=== PATIENT | male | born 1970 | race Two or more races ===

== ENCOUNTER 2017-10-03 17:36 | Inpatient (IN) | payer OTHER ==
[~2017-10-03] VITALS: Ht 182.9 cm; Wt 135.9 kg
[2017-10-03] MEDS ORDERED: SODIUM CHLORIDE 0.9% 1,000ML IVBOLUS ONE ×3 (18:00→23:30)
[2017-10-03] MEDS ORDERED: ACETAMINOPHEN 650 MG SUPP PR ONE (18:00)
[2017-10-03] MEDS ORDERED: ACETAMINOPHEN 650 MG SUPP ONE (18:00)
[2017-10-03] MEDS ORDERED: CEFOTETAN PMX 2GM/50ML 50 ML IV ONE (18:00)
[2017-10-03] MEDS ORDERED: SODIUM CHLORIDE FLUSH 10ML SYR IVF ONE (18:00)
[2017-10-03 18:30] LABS: HEMATOCRIT 49.2 % (39.2-51.8); HEMOGLOBIN 16.5 g/dL (13.7-18.0); WHITE BLOOD COUNT 13.1 x10^3/uL (3.4-10)
[2017-10-03] MEDS ORDERED: ONDANSETRON 2MG/ML, 2ML IVPush PRN ×2 (18:30→20:00)
[2017-10-03] MEDS ORDERED: ACETAMINOPHEN 325 MG TABLET PO PRN (18:30)
[2017-10-03 18:41] LABS: ASPARTATE AMINO TRANSFERASE 9 U/L (15-37); BLOOD UREA NITROGEN 12 mg/dL (7-18)
[2017-10-03] MEDS ORDERED: morphine SULFATE 10 MG/ML, 1ML IVPush PRN (20:00)
[2017-10-03] MEDS ORDERED: BISACODYL 10 MG SUPP PR PRN (20:00)
[2017-10-03] MEDS ORDERED: ACETAMINOPHEN 650 MG SUPP PR PRN (20:00)
[2017-10-03 21:00] VITALS: BP 130/86
[2017-10-03] MEDS: SODIUM CHLORIDE 0.9% 1,000 ML IV SCH (23:12)
[2017-10-04 04:25] VITALS: BP 133/88
[2017-10-04 05:20] LABS: HEMATOCRIT 44.8 % (39.2-51.8); HEMOGLOBIN 15.3 g/dL (13.7-18.0); WHITE BLOOD COUNT 14.4 x10^3/uL (3.4-10)
[2017-10-04 05:37] LABS: ASPARTATE AMINO TRANSFERASE 8 U/L (15-37); BLOOD UREA NITROGEN 8 mg/dL (7-18)
[2017-10-04] MEDS ORDERED: CEFOTETAN PMX 2GM/50ML 50 ML IV SCH (06:00)
[2017-10-04] MEDS ORDERED: FENTANYL PF 100 MCG/2ML ONE ×2 (07:04)
[2017-10-04] MEDS ORDERED: MIDAZOLAM 1 MG/ML, 2ML ONE (07:04)
[2017-10-04] MEDS ORDERED: ROCURONIUM 10 MG/ML,10ML ONE (07:05)
[2017-10-04] MEDS ORDERED: PROPOFOL 10 MG/ML, 20ML ONE (07:05)
[2017-10-04] MEDS ORDERED: SUCCINYLCHOLINE 20 MG/ML, 10ML ONE (07:06)
[2017-10-04] MEDS ORDERED: EPINEPHRINE 1 MG/ML, 1ML ONE (07:09)
[2017-10-04] MEDS ORDERED: BUPIVACAINE/PF 0.5% ONE (07:09)
[2017-10-04] MEDS ORDERED: OXYcodone 5 MG/5 ML ORAL.SOL UDC PO PRN (07:30)
[2017-10-04] MEDS ORDERED: HYDROmorphone 1 MG/ML, 1ML IV PRN (07:30)
[2017-10-04] MEDS ORDERED: ONDANSETRON 2MG/ML, 2ML IVPush PRN (07:30)
[2017-10-04] MEDS ORDERED: PROMETHAZINE 25 MG/ML, 1ML IV PRN (07:30)
[2017-10-04] MEDS ORDERED: FENTANYL PF 100 MCG/2ML IV PRN (07:30)
[2017-10-04] MEDS ORDERED: hydrALAzine 20 MG/ML, 1ML IV PRN (07:30)
[2017-10-04] MEDS ORDERED: LABETALOL 5MG/ML, 20ML IV PRN (07:30)
[2017-10-04] MEDS ORDERED: ACETAMINOPHEN 325 MG TABLET PO PRN (07:30)
[2017-10-04] MEDS ORDERED: MEPERIDINE/PF 25MG/0.5ML IVPush PRN (07:30)
[2017-10-04] MEDS: SODIUM CHLORIDE 0.9% 1,000 ML IV SCH (07:42)
[2017-10-04 07:45] VITALS: BP 123/82
[2017-10-04] MEDS ORDERED: MAGNESIUM SULFATE PMX 2GM/50ML 50 ML IV ONE (09:30)
[2017-10-04] MEDS ORDERED: DILTIAZEM 5 MG/ML, 5ML IVPush ONE (09:30)
[2017-10-04] MEDS ORDERED: [UNRECOGNIZED DRUG - CODE] IV (09:33)
[2017-10-04] MEDS ORDERED: ONDA4VIA4 IVPush (09:41)
[2017-10-04] MEDS ORDERED: HYDR1AMP IV ×2 (09:41→10:03)
[2017-10-04] MEDS ORDERED: MORP10VI10 IVPush (09:41)
[2017-10-04] MEDS ORDERED: ACET650S12 PR (09:41)
[2017-10-04] MEDS ORDERED: HYDR20VI3 IV ×2 (09:41→10:03)
[2017-10-04] MEDS ORDERED: LABE5VIA13 IV ×2 (09:41→10:03)
== END 2017-10-04 10:51 | disposition short-term general hospital (02) | DRG 373 ==
LOC: ED 17:53 → EDIP 18:25 → INTOOBSV 18:25 → 5SO 20:55 → OBSVTOIN 10-04 06:46
PROVIDERS: ADMIT Surgery; ATTEND Surgery
DX: K35.3 Acute appendicitis with localized peritonitis (principal); I48.0 Paroxysmal atrial fibrillation; E86.1 Hypovolemia; G47.33 Obstructive sleep apnea (adult) (pediatric); K59.00 Constipation, unspecified; Z83.3 Family history of diabetes mellitus
CPT/HCPCS: 36415; 80053; 85025; 93005; 96365; G0378; J0171; J2250; J2704; J3010; J3490; J0330; J7030; S0074

== ENCOUNTER 2017-11-08 10:38 | Inpatient (IN) | payer OTHER ==
[~2017-11-08] VITALS: Ht 182.9 cm; Wt 127.0 kg
[~2017-11-08 10:38] MED LIST: ACET650S12 PR; ASPI-650 PO; CARV6.2512 PO; HYDR1AMP IV; HYDR20VI3 IV; LABE5VIA13 IV; MORP10VI10 IVPush; ONDA4VIA4 IVPush; [UNRECOGNIZED DRUG - CODE] IV
[2017-11-08 11:07] VITALS: BP 151/98
[2017-11-08] MEDS ORDERED: CARV6.2512 PO (11:26)
[2017-11-08] MEDS ORDERED: antibiotic (11:26)
[2017-11-08] MEDS: LACTATED RINGERS 1,000 ML IV SCH ×2 (11:26→19:28)
[2017-11-08] MEDS ORDERED: [UNRECOGNIZED DRUG - REMARK] (11:26)
[2017-11-08] MEDS ORDERED: LIDOCAINE 1%, 2ML SQ PRN (11:30)
[2017-11-08] MEDS ORDERED: BUPIVACAINE/PF 0.5% ONE (11:37)
[2017-11-08] MEDS ORDERED: BUPIVACAINE/PF 0.5% INFIL ONE (12:29)
[2017-11-08] MEDS ORDERED: EPHEDRINE 50 MG/ML, 1ML IVPush PRN (14:30)
[2017-11-08] MEDS ORDERED: OXYcodone 5 MG/5 ML ORAL.SOL UDC PO PRN (14:30)
[2017-11-08] MEDS ORDERED: HYDROmorphone 1 MG/ML, 1ML IV PRN ×2 (14:30→18:30)
[2017-11-08] MEDS ORDERED: LORazepam 2 MG/ML, 1ML IVPush PRN (14:30)
[2017-11-08] MEDS ORDERED: MIDAZOLAM 1 MG/ML, 2ML IV PRN (14:30)
[2017-11-08] MEDS ORDERED: MEPERIDINE/PF 25MG/0.5ML IVPush PRN (14:30)
[2017-11-08] MEDS ORDERED: ONDANSETRON 2MG/ML, 2ML IVPush PRN (14:30)
[2017-11-08] MEDS ORDERED: ACETAMINOPHEN 325 MG TABLET PO PRN (14:30)
[2017-11-08] MEDS ORDERED: PROMETHAZINE 25 MG/ML, 1ML IV PRN (14:30)
[2017-11-08] MEDS ORDERED: FENTANYL PF 100 MCG/2ML ONE (14:51)
[2017-11-08] MEDS ORDERED: OXYcodone 5 MG/5 ML ORAL.SOL UDC ONE (14:51)
[2017-11-08] MEDS ORDERED: ACETAMINOPHEN 325 MG TABLET ONE (14:56)
[2017-11-08] MEDS ORDERED: ACETAMINOPHEN 650 MG/20.3 ML UDC ONE (14:56)
[2017-11-08] MEDS: LABETALOL 5MG/ML, 20ML IV PRN ×3 (15:00→15:45)
[2017-11-08] MEDS: FENTANYL PF 100 MCG/2ML IV PRN ×3 (15:05→16:15)
[2017-11-08] MEDS ORDERED: hydrALAzine 20 MG/ML, 1ML ONE (15:23)
[2017-11-08] MEDS ORDERED: hydrALAzine 20 MG/ML, 1ML IV PRN (15:30)
[2017-11-08] MEDS ORDERED: HYDROmorphone 2 MG/ML, 1ML ONE (17:40)
[2017-11-08] MEDS ORDERED: DIPHENHYDRAMINE 50 MG/ML, 1ML IV PRN (18:30)
[2017-11-08] MEDS ORDERED: DIPHENHYDRAMINE 25 MG CAPSULE PO PRN (18:30)
[2017-11-08] MEDS ORDERED: LORazepam 1MG TABLET PO PRN (18:30)
[2017-11-08] MEDS ORDERED: LORazepam 2 MG/ML, 1ML IV PRN (18:30)
[2017-11-08 19:06] VITALS: BP 114/56
[2017-11-08] MEDS: OXYcodone 5 MG/5 ML ORAL.SOL UDC PO PRN ×2 (19:27→23:54)
[2017-11-08] MEDS: CARVEDILOL 6.25 MG TABLET PO SCH (19:28)
[2017-11-08] MEDS: ACETAMINOPHEN 500 MG TABLET PO SCH ×2 (19:28→20:59)
[2017-11-08] MEDS: IBUPROFEN 800 MG TABLET PO SCH (20:57)
[2017-11-08] MEDS: FAMOTIDINE 20 MG TABLET PO SCH (20:57)
[2017-11-08] MEDS: POTASSIUM CHLORIDE 20 MEQ in D5%-0.45% NACL 1,000 ML IV SCH (20:58)
[2017-11-08 23:20] VITALS: BP 117/76
[2017-11-09] MEDS: ACETAMINOPHEN 500 MG TABLET PO SCH ×4 (03:11→20:55)
[2017-11-09 03:12] VITALS: BP 101/58
[2017-11-09 04:22] LABS: HEMATOCRIT 39.2 % (39.2-51.8); HEMOGLOBIN 12.9 g/dL (13.7-18.0); WHITE BLOOD COUNT 9.7 x10^3/uL (3.4-10)
[2017-11-09 04:29] LABS: BLOOD UREA NITROGEN 13 mg/dL (7-18)
[2017-11-09] MEDS ORDERED: ENOXAPARIN 40 MG/0.4 ML SQ SCH (06:00)
[2017-11-09] MEDS: CARVEDILOL 6.25 MG TABLET PO SCH ×2 (06:03→17:48)
[2017-11-09] MEDS: OXYcodone 5 MG/5 ML ORAL.SOL UDC PO PRN ×3 (06:03→17:51)
[2017-11-09 06:50] VITALS: BP 111/74
[2017-11-09] MEDS: FAMOTIDINE 20 MG TABLET PO SCH ×2 (07:49→20:55)
[2017-11-09] MEDS: IBUPROFEN 800 MG TABLET PO SCH ×3 (07:49→20:55)
[2017-11-09] MEDS: ENOXAPARIN 40 MG/0.4 ML SQ SCH (07:49)
[2017-11-09] MEDS: POTASSIUM CHLORIDE 20 MEQ in D5%-0.45% NACL 1,000 ML IV SCH (08:07)
[2017-11-09 13:50] VITALS: BP 106/67
[2017-11-09 17:47] VITALS: BP 102/68
[2017-11-09 21:28] VITALS: BP 107/71
[2017-11-10 02:57] LABS: HEMATOCRIT 38.8 % (39.2-51.8); HEMOGLOBIN 12.7 g/dL (13.7-18.0); WHITE BLOOD COUNT 10.7 x10^3/uL (3.4-10)
[2017-11-10] MEDS: ACETAMINOPHEN 500 MG TABLET PO SCH ×4 (03:00→20:55)
[2017-11-10 03:02] LABS: BLOOD UREA NITROGEN 17 mg/dL (7-18)
[2017-11-10 03:59] VITALS: BP 129/88
[2017-11-10 04:33] VITALS: BP 129/88
[2017-11-10] MEDS: CARVEDILOL 6.25 MG TABLET PO SCH ×2 (05:14→16:59)
[2017-11-10] MEDS: OXYcodone 5 MG/5 ML ORAL.SOL UDC PO PRN ×3 (05:14→16:59)
[2017-11-10 07:25] VITALS: BP 129/91
[2017-11-10] MEDS: IBUPROFEN 800 MG TABLET PO SCH ×3 (08:18→20:55)
[2017-11-10] MEDS: ENOXAPARIN 40 MG/0.4 ML SQ SCH (08:18)
[2017-11-10] MEDS: FAMOTIDINE 20 MG TABLET PO SCH ×2 (08:18→20:55)
[2017-11-10] MEDS ORDERED: IBUPROFEN 600 MG TABLET ONE (14:20)
[2017-11-10] MEDS ORDERED: IBUPROFEN 200 MG TABLET ONE (14:21)
[2017-11-10 14:31] VITALS: BP 130/81
[2017-11-10 16:58] VITALS: BP 141/71
[2017-11-10] MEDS ORDERED: OXYC-302 PO (18:18)
[2017-11-10 20:00] VITALS: BP 98/55
[2017-11-11] MEDS: OXYcodone 5 MG/5 ML ORAL.SOL UDC PO PRN ×3 (00:13→12:41)
[2017-11-11 01:27] VITALS: BP 125/88
[2017-11-11] MEDS: ACETAMINOPHEN 500 MG TABLET PO SCH ×2 (02:43→09:15)
[2017-11-11 03:14] LABS: HEMATOCRIT 35.9 % (39.2-51.8); HEMOGLOBIN 12.1 g/dL (13.7-18.0); WHITE BLOOD COUNT 9.1 x10^3/uL (3.4-10)
[2017-11-11 03:34] LABS: BLOOD UREA NITROGEN 16 mg/dL (7-18)
[2017-11-11] MEDS: CARVEDILOL 6.25 MG TABLET PO SCH (06:34)
[2017-11-11] MEDS: ENOXAPARIN 40 MG/0.4 ML SQ SCH (09:15)
[2017-11-11] MEDS: FAMOTIDINE 20 MG TABLET PO SCH (09:15)
[2017-11-11] MEDS: IBUPROFEN 800 MG TABLET PO SCH (09:15)
[2017-11-11 10:16] VITALS: BP 118/79
[2017-11-11 13:09] VITALS: BP 117/77
== END 2017-11-11 14:20 | disposition home or self-care (01) | DRG 330 ==
LOC: OUT 10:38 → 4NOR 16:44 → OUT 16:47 → 4NOR 16:47
PROVIDERS: ADMIT Surgery; ATTEND Surgery
PROC: 0DBH4ZZ Excision of Cecum, Percutaneous Endoscopic Approach (ICD-10-PCS; principal; 2017-11-09)
DX: K57.80 Diverticulitis of intestine, part unspecified, with perforation and abscess without bleeding (principal); I48.91 Unspecified atrial fibrillation; I10 Essential (primary) hypertension; G47.30 Sleep apnea, unspecified
CPT/HCPCS: 36415; 71010; 80048; 82040; 85025; 88307; J0690; J1100; J1170; J1650; J2250; J2405; J2704; J3010; J3480; J3490; J0360; J7120

== ENCOUNTER 2017-12-04 16:08 | Inpatient (IN) | payer OTHER ==
[~2017-12-04] VITALS: Ht 182.9 cm; Wt 132.8 kg
[~2017-12-04 16:08] MED LIST changes: -ACET-1757 PO; -IBUP-1221 PO; -METO25TA35 PO
[2017-12-04 16:53] VITALS: BP 157/106
[2017-12-04] MEDS ORDERED: ACET-1757 PO (17:21)
[2017-12-04] MEDS ORDERED: IBUP-1221 PO (17:22)
[2017-12-04] MEDS ORDERED: METO25TA35 PO (17:23)
[2017-12-04 19:20] VITALS: BP 148/95
[2017-12-04] MEDS ORDERED: MORPHINE SULFATE 4 MG/ML, 1ML ONE (19:36)
[2017-12-04] MEDS: MORPHINE SULFATE 4 MG/ML, 1ML IVPush PRN ×2 (19:52→23:55)
[2017-12-04] MEDS ORDERED: ACETAMINOPHEN 325 MG TABLET PO PRN (20:00)
[2017-12-04] MEDS: OXYcodone/APAP 5/325MG TABLET PO PRN (20:33)
[2017-12-04] MEDS: D5%-0.45NACL+KCL 20MEQ 1,000 ML IV SCH (20:34)
[2017-12-04] MEDS: PIPERACILLIN/TAZO/PMX 3.375GM 50 ML IV SCH (20:34)
[2017-12-05] VITALS (11 sets, daily range): BP systolic 86–170; BP diastolic 54–93
[2017-12-05] MEDS: OXYcodone/APAP 5/325MG TABLET PO PRN ×5 (02:18→21:20)
[2017-12-05] MEDS: PIPERACILLIN/TAZO/PMX 3.375GM 50 ML IV SCH ×3 (04:10→21:13)
[2017-12-05] MEDS: D5%-0.45NACL+KCL 20MEQ 1,000 ML IV SCH ×3 (04:10→23:37)
[2017-12-05] MEDS: MORPHINE SULFATE 4 MG/ML, 1ML IVPush PRN ×5 (04:15→22:52)
[2017-12-05 05:05] LABS: BASOPHILS # (AUTO) 0.05 x10^3/uL (0-0.1); BASOPHILS % (AUTO) 0 % (0-1); EOSINOPHILS # (AUTO) 0.02 x10^3/uL (0-0.4); EOSINOPHILS % (AUTO) 0 % (1-7); LYMPHOCYTES # (AUTO) 1.33 x10^3/uL (1-3.4); LYMPHOCYTES % (AUTO) 10 % (22-44); MD NO; MEAN CORPUSCULAR HEMOGLOBIN 26.7 pg (27.5-34.5); MEAN CORPUSCULAR HGB CONC 33.5 g/dL (33.2-36.2); MEAN CORPUSCULAR VOLUME 79.8 fL (81-97); MEAN PLATELET VOLUME 7.6 fL (7.4-10.4); MONOCYTES # (AUTO) 0.84 x10^3/uL (0.2-0.8); MONOCYTES % (AUTO) 6 % (2-9); NEUTROPHILS # (AUTO) 11.76 x10^3/uL (1.8-6.8); NEUTROPHILS % (AUTO) 84 % (42-75); PLATELET COUNT 348 x10^3/uL (130-400); RED BLOOD COUNT 3.69 x10^6/uL (4.38-5.82); RED CELL DISTRIBUTION WIDTH 15.5 % (9.4-14.8)
[2017-12-05 05:12] LABS: INTERNATIONAL NORMALIZED RATIO 1.12 (0.93-1.1); PROTHROMBIN TIME 11.6 Seconds (9.6-11.5)
[2017-12-05 05:18] LABS: CHLORIDE 100 mmol/L (98-107)
[2017-12-05 05:34] LABS: ALANINE AMINOTRANSFERASE 22 U/L (12-78); ALBUMIN 2.1 g/dL (3.4-5.0); ALKALINE PHOSPHATASE 93 U/L (45-117); ANION GAP 10 mmol/L (5-15); BILIRUBIN,TOTAL 1.2 mg/dL (0.2-1.0); CALCIUM 8.9 mg/dL (8.5-10.1); CREATININE 0.78 mg/dL (0.7-1.3); TOTAL PROTEIN 8.2 g/dL (6.4-8.2)
[2017-12-05] MEDS ORDERED: LIDOCAINE 1%, 20ML ONE (11:34)
[2017-12-05] MEDS ORDERED: FENTANYL PF 100 MCG/2ML ONE (11:35)
[2017-12-05] MEDS ORDERED: NALOXONE 1 MG/ML, 2ML ONE (11:36)
[2017-12-05] MEDS ORDERED: MIDAZOLAM 1 MG/ML, 2ML ONE ×2 (11:36)
[2017-12-05] MEDS ORDERED: FLUMAZENIL 0.1 MG/1 ML, 5ML ONE (11:36)
[2017-12-05] MEDS ORDERED: SODIUM CHLORIDE 0.9% 1,000ML IVBOLUS ONE (13:00)
[2017-12-05] MEDS ORDERED: PHARMACY MAY ADJ FOR RENAL FX MC PRN (13:00)
[2017-12-05] MEDS: METOPROLOL TARTRATE 25 MG TABLET PO SCH (13:12)
[2017-12-05] MEDS ORDERED: METOPROLOL 1 MG/ML, 5ML IVPush PRN (14:30)
[2017-12-05] MEDS ORDERED: DILTIAZEM 5 MG/ML, 5ML IVPush ONE (15:00)
[2017-12-05] MEDS: DILTIAZEM 125 MG in SODIUM CHLORIDE 0.9% 100 ML IV SCH (15:34)
[2017-12-05 17:26] LABS: BASOPHILS # (AUTO) 0.02 x10^3/uL (0-0.1); BASOPHILS % (AUTO) 0 % (0-1); EOSINOPHILS % (AUTO) 0 % (1-7); LYMPHOCYTES # (AUTO) 0.87 x10^3/uL (1-3.4); LYMPHOCYTES % (AUTO) 6 % (22-44); MD NO; MEAN CORPUSCULAR HEMOGLOBIN 26.5 pg (27.5-34.5); MEAN CORPUSCULAR HGB CONC 33.2 g/dL (33.2-36.2); MEAN CORPUSCULAR VOLUME 79.7 fL (81-97); MEAN PLATELET VOLUME 7.7 fL (7.4-10.4); MONOCYTES # (AUTO) 0.44 x10^3/uL (0.2-0.8); MONOCYTES % (AUTO) 3 % (2-9); NEUTROPHILS # (AUTO) 12.48 x10^3/uL (1.8-6.8); NEUTROPHILS % (AUTO) 90 % (42-75); PLATELET COUNT 319 x10^3/uL (130-400); RED BLOOD COUNT 3.72 x10^6/uL (4.38-5.82); RED CELL DISTRIBUTION WIDTH 15.4 % (9.4-14.8)
[2017-12-05 17:38] LABS: ANION GAP 11 mmol/L (5-15); CALCIUM 7.5 mg/dL (8.5-10.1); CHLORIDE 104 mmol/L (98-107); CREATININE 0.87 mg/dL (0.7-1.3)
[2017-12-06] MEDS: DILTIAZEM 125 MG in SODIUM CHLORIDE 0.9% 100 ML IV SCH ×2 (01:01→15:19)
[2017-12-06] MEDS: OXYcodone/APAP 5/325MG TABLET PO PRN ×3 (01:01→10:33)
[2017-12-06 01:03] VITALS: BP 115/58
[2017-12-06] MEDS: MORPHINE SULFATE 4 MG/ML, 1ML IVPush PRN ×3 (03:32→14:00)
[2017-12-06] MEDS: PIPERACILLIN/TAZO/PMX 3.375GM 50 ML IV SCH ×3 (05:30→22:02)
[2017-12-06 05:57] LABS: BASOPHILS # (AUTO) 0.05 x10^3/uL (0-0.1); BASOPHILS % (AUTO) 1 % (0-1); EOSINOPHILS # (AUTO) 0.09 x10^3/uL (0-0.4); EOSINOPHILS % (AUTO) 1 % (1-7); LYMPHOCYTES # (AUTO) 1.14 x10^3/uL (1-3.4); LYMPHOCYTES % (AUTO) 10 % (22-44); MD NO; MEAN CORPUSCULAR HEMOGLOBIN 26.4 pg (27.5-34.5); MEAN CORPUSCULAR HGB CONC 32.8 g/dL (33.2-36.2); MEAN CORPUSCULAR VOLUME 80.5 fL (81-97); MEAN PLATELET VOLUME 7.6 fL (7.4-10.4); MONOCYTES # (AUTO) 0.49 x10^3/uL (0.2-0.8); MONOCYTES % (AUTO) 4 % (2-9); NEUTROPHILS # (AUTO) 9.86 x10^3/uL (1.8-6.8); NEUTROPHILS % (AUTO) 85 % (42-75); PLATELET COUNT 318 x10^3/uL (130-400); RED BLOOD COUNT 3.65 x10^6/uL (4.38-5.82); RED CELL DISTRIBUTION WIDTH 15.2 % (9.4-14.8)
[2017-12-06 06:09] LABS: ALANINE AMINOTRANSFERASE 19 U/L (12-78); ALBUMIN 2.1 g/dL (3.4-5.0); ANION GAP 9 mmol/L (5-15); CALCIUM 8.1 mg/dL (8.5-10.1); CHLORIDE 103 mmol/L (98-107); CREATININE 0.71 mg/dL (0.7-1.3)
[2017-12-06 06:12] LABS: ALKALINE PHOSPHATASE 91 U/L (45-117); BILIRUBIN,TOTAL 1.4 mg/dL (0.2-1.0); INTERNATIONAL NORMALIZED RATIO 1.16 (0.93-1.1)
[2017-12-06 08:00] VITALS: BP 103/68
[2017-12-06] MEDS: METOPROLOL TARTRATE 25 MG TABLET PO SCH (08:05)
[2017-12-06] MEDS: D5%-0.45NACL+KCL 20MEQ 1,000 ML IV SCH ×2 (09:41→19:59)
[2017-12-06 13:40] VITALS: BP 125/86
[2017-12-06] MEDS: OXYcodone/APAP 10/325MG TABLET PO PRN ×2 (16:32→22:43)
[2017-12-06 18:54] VITALS: BP 145/88
[2017-12-07 01:01] VITALS: BP 126/76
[2017-12-07] MEDS: DILTIAZEM 125 MG in SODIUM CHLORIDE 0.9% 100 ML IV SCH (03:32)
[2017-12-07] MEDS: OXYcodone/APAP 10/325MG TABLET PO PRN ×3 (04:55→22:29)
[2017-12-07 05:38] LABS: BASOPHILS # (AUTO) 0.03 x10^3/uL (0-0.1); BASOPHILS % (AUTO) 0 % (0-1); EOSINOPHILS # (AUTO) 0.19 x10^3/uL (0-0.4); EOSINOPHILS % (AUTO) 2 % (1-7); INTERNATIONAL NORMALIZED RATIO 1.11 (0.93-1.1); LYMPHOCYTES # (AUTO) 1.45 x10^3/uL (1-3.4); LYMPHOCYTES % (AUTO) 14 % (22-44); MD NO; MEAN CORPUSCULAR HEMOGLOBIN 26.8 pg (27.5-34.5); MEAN CORPUSCULAR HGB CONC 33.3 g/dL (33.2-36.2); MEAN CORPUSCULAR VOLUME 80.4 fL (81-97); MEAN PLATELET VOLUME 8.1 fL (7.4-10.4); MONOCYTES % (AUTO) 6 % (2-9); NEUTROPHILS # (AUTO) 8.33 x10^3/uL (1.8-6.8); NEUTROPHILS % (AUTO) 79 % (42-75); PLATELET COUNT 328 x10^3/uL (130-400); PROTHROMBIN TIME 11.5 Seconds (9.6-11.5); RED BLOOD COUNT 3.45 x10^6/uL (4.38-5.82); RED CELL DISTRIBUTION WIDTH 15.3 % (9.4-14.8)
[2017-12-07 05:44] LABS: CHLORIDE 103 mmol/L (98-107)
[2017-12-07] MEDS: PIPERACILLIN/TAZO/PMX 3.375GM 50 ML IV SCH ×2 (05:52→15:09)
[2017-12-07 05:58] LABS: ALANINE AMINOTRANSFERASE 17 U/L (12-78); ALKALINE PHOSPHATASE 138 U/L (45-117); ANION GAP 7 mmol/L (5-15); BILIRUBIN,TOTAL 0.7 mg/dL (0.2-1.0); CREATININE 0.76 mg/dL (0.7-1.3); TOTAL PROTEIN 7.5 g/dL (6.4-8.2)
[2017-12-07 07:04] VITALS: BP 128/78
[2017-12-07] MEDS: POLYETHYLENE GLYCOL 17 GM PACKET PO SCH (08:03)
[2017-12-07] MEDS: METOPROLOL TARTRATE 25 MG TABLET PO SCH (08:03)
[2017-12-07] MEDS: D5%-0.45NACL+KCL 20MEQ 1,000 ML IV SCH (08:04)
[2017-12-07] MEDS: DILTIAZEM 60 MG TABLET PO SCH ×3 (11:04→22:19)
[2017-12-07] MEDS: MORPHINE SULFATE 4 MG/ML, 1ML IVPush PRN (11:04)
[2017-12-07 12:30] VITALS: BP 124/81
[2017-12-07] MEDS: ENOXAPARIN 40 MG/0.4 ML SQ SCH (15:09)
[2017-12-07] MEDS: AMPICILLIN/SULBACTAM 3 GM in SODIUM CHLORIDE 0.9% 100 ML IV SCH ×2 (16:16→22:20)
[2017-12-07 16:52] LABS: HCT (SEDRATE) 30.4 % (39.2-51.8)
[2017-12-07 19:50] VITALS: BP 119/77
[2017-12-08 01:38] VITALS: BP 130/89
[2017-12-08] MEDS: OXYcodone/APAP 10/325MG TABLET PO PRN ×2 (04:44→19:31)
[2017-12-08] MEDS: AMPICILLIN/SULBACTAM 3 GM in SODIUM CHLORIDE 0.9% 100 ML IV SCH ×4 (04:45→21:35)
[2017-12-08 05:32] LABS: BASOPHILS # (AUTO) 0.03 x10^3/uL (0-0.1); BASOPHILS % (AUTO) 0 % (0-1); EOSINOPHILS # (AUTO) 0.28 x10^3/uL (0-0.4); EOSINOPHILS % (AUTO) 3 % (1-7); LYMPHOCYTES # (AUTO) 1.49 x10^3/uL (1-3.4); LYMPHOCYTES % (AUTO) 17 % (22-44); MD NO; MEAN CORPUSCULAR HEMOGLOBIN 26.4 pg (27.5-34.5); MEAN CORPUSCULAR HGB CONC 32.6 g/dL (33.2-36.2); MEAN CORPUSCULAR VOLUME 80.8 fL (81-97); MEAN PLATELET VOLUME 7.9 fL (7.4-10.4); MONOCYTES % (AUTO) 6 % (2-9); NEUTROPHILS # (AUTO) 6.64 x10^3/uL (1.8-6.8); NEUTROPHILS % (AUTO) 74 % (42-75); PLATELET COUNT 342 x10^3/uL (130-400); RED BLOOD COUNT 3.79 x10^6/uL (4.38-5.82); RED CELL DISTRIBUTION WIDTH 15.8 % (9.4-14.8)
[2017-12-08 05:46] LABS: ALBUMIN 2.3 g/dL (3.4-5.0); ANION GAP 7 mmol/L (5-15); CALCIUM 8.2 mg/dL (8.5-10.1); CHLORIDE 105 mmol/L (98-107)
[2017-12-08 05:50] LABS: ALANINE AMINOTRANSFERASE 25 U/L (12-78); ALKALINE PHOSPHATASE 162 U/L (45-117); BILIRUBIN,TOTAL 0.6 mg/dL (0.2-1.0); TOTAL PROTEIN 7.9 g/dL (6.4-8.2)
[2017-12-08] MEDS: DILTIAZEM 60 MG TABLET PO SCH ×4 (05:50→21:34)
[2017-12-08 08:15] VITALS: BP 142/93
[2017-12-08] MEDS: POLYETHYLENE GLYCOL 17 GM PACKET PO SCH (09:00)
[2017-12-08] MEDS: METOPROLOL TARTRATE 25 MG TABLET PO SCH ×2 (10:20→21:34)
[2017-12-08 12:10] VITALS: BP 119/81
[2017-12-08] MEDS: ENOXAPARIN 40 MG/0.4 ML SQ SCH (15:48)
[2017-12-08 18:39] VITALS: BP 134/78
[2017-12-09 00:16] VITALS: BP 129/83
[2017-12-09] MEDS: AMPICILLIN/SULBACTAM 3 GM in SODIUM CHLORIDE 0.9% 100 ML IV SCH ×4 (03:46→22:45)
[2017-12-09] MEDS: DILTIAZEM 60 MG TABLET PO SCH ×3 (05:10→20:50)
[2017-12-09 05:11] LABS: BASOPHILS # (AUTO) 0.02 x10^3/uL (0-0.1); BASOPHILS % (AUTO) 0 % (0-1); EOSINOPHILS % (AUTO) 4 % (1-7); LYMPHOCYTES # (AUTO) 1.68 x10^3/uL (1-3.4); LYMPHOCYTES % (AUTO) 16 % (22-44); MD NO; MEAN CORPUSCULAR HEMOGLOBIN 26.8 pg (27.5-34.5); MEAN CORPUSCULAR HGB CONC 32.8 g/dL (33.2-36.2); MEAN CORPUSCULAR VOLUME 81.5 fL (81-97); MEAN PLATELET VOLUME 7.5 fL (7.4-10.4); MONOCYTES # (AUTO) 0.47 x10^3/uL (0.2-0.8); MONOCYTES % (AUTO) 5 % (2-9); NEUTROPHILS # (AUTO) 8.01 x10^3/uL (1.8-6.8); NEUTROPHILS % (AUTO) 76 % (42-75); PLATELET COUNT 430 x10^3/uL (130-400); RED BLOOD COUNT 3.94 x10^6/uL (4.38-5.82); RED CELL DISTRIBUTION WIDTH 15.5 % (9.4-14.8)
[2017-12-09 05:21] LABS: ALBUMIN 2.2 g/dL (3.4-5.0); ANION GAP 7 mmol/L (5-15); CALCIUM 8.3 mg/dL (8.5-10.1); CHLORIDE 107 mmol/L (98-107)
[2017-12-09 05:26] LABS: ALANINE AMINOTRANSFERASE 28 U/L (12-78); ALKALINE PHOSPHATASE 141 U/L (45-117); BILIRUBIN,TOTAL 0.5 mg/dL (0.2-1.0); CREATININE 0.76 mg/dL (0.7-1.3); TOTAL PROTEIN 7.9 g/dL (6.4-8.2)
[2017-12-09 07:29] VITALS: BP 142/87
[2017-12-09] MEDS: METOPROLOL TARTRATE 25 MG TABLET PO SCH ×2 (08:35→20:50)
[2017-12-09] MEDS: POLYETHYLENE GLYCOL 17 GM PACKET PO SCH (08:36)
[2017-12-09] MEDS ORDERED: OMNIPAQUE 350 MG/ML, 100ML BOTTLE ONE (11:41)
[2017-12-09 14:50] VITALS: BP 129/85
[2017-12-09] MEDS: ENOXAPARIN 40 MG/0.4 ML SQ SCH (15:24)
[2017-12-09 18:35] VITALS: BP 147/83
[2017-12-10 01:31] VITALS: BP 125/81
[2017-12-10] MEDS: AMPICILLIN/SULBACTAM 3 GM in SODIUM CHLORIDE 0.9% 100 ML IV SCH ×4 (04:41→22:09)
[2017-12-10 05:22] LABS: BASOPHILS # (AUTO) 0.03 x10^3/uL (0-0.1); BASOPHILS % (AUTO) 0 % (0-1); EOSINOPHILS # (AUTO) 0.31 x10^3/uL (0-0.4); EOSINOPHILS % (AUTO) 3 % (1-7); LYMPHOCYTES # (AUTO) 1.68 x10^3/uL (1-3.4); LYMPHOCYTES % (AUTO) 17 % (22-44); MD NO; MEAN CORPUSCULAR HEMOGLOBIN 26.1 pg (27.5-34.5); MEAN CORPUSCULAR VOLUME 81.4 fL (81-97); MEAN PLATELET VOLUME 7.4 fL (7.4-10.4); MONOCYTES # (AUTO) 0.41 x10^3/uL (0.2-0.8); MONOCYTES % (AUTO) 4 % (2-9); NEUTROPHILS # (AUTO) 7.44 x10^3/uL (1.8-6.8); NEUTROPHILS % (AUTO) 75 % (42-75); PLATELET COUNT 459 x10^3/uL (130-400); RED BLOOD COUNT 4.23 x10^6/uL (4.38-5.82); RED CELL DISTRIBUTION WIDTH 15.6 % (9.4-14.8)
[2017-12-10 05:42] LABS: CHLORIDE 109 mmol/L (98-107)
[2017-12-10 05:52] LABS: ALANINE AMINOTRANSFERASE 58 U/L (12-78); ALBUMIN 2.4 g/dL (3.4-5.0); ALKALINE PHOSPHATASE 137 U/L (45-117); ANION GAP 5 mmol/L (5-15); BILIRUBIN,TOTAL 0.4 mg/dL (0.2-1.0); CALCIUM 8.8 mg/dL (8.5-10.1); CREATININE 0.72 mg/dL (0.7-1.3); TOTAL PROTEIN 8.3 g/dL (6.4-8.2)
[2017-12-10 06:13] LABS: HCT (SEDRATE) 34.4 % (39.2-51.8)
[2017-12-10 08:13] VITALS: BP 141/93
[2017-12-10] MEDS: POLYETHYLENE GLYCOL 17 GM PACKET PO SCH (09:00)
[2017-12-10] MEDS: DILTIAZEM 60 MG TABLET PO SCH ×2 (09:13→20:21)
[2017-12-10] MEDS: METOPROLOL TARTRATE 25 MG TABLET PO SCH ×2 (09:13→20:21)
[2017-12-10 12:54] VITALS: BP 128/81
[2017-12-10] MEDS: ENOXAPARIN 40 MG/0.4 ML SQ SCH (15:39)
[2017-12-10 19:55] VITALS: BP 137/85
[2017-12-11] MEDS: AMPICILLIN/SULBACTAM 3 GM in SODIUM CHLORIDE 0.9% 100 ML IV SCH ×3 (03:51→16:10)
[2017-12-11 03:55] VITALS: BP 114/77
[2017-12-11 05:29] LABS: BASOPHILS # (AUTO) 0.04 x10^3/uL (0-0.1); BASOPHILS % (AUTO) 0 % (0-1); EOSINOPHILS # (AUTO) 0.24 x10^3/uL (0-0.4); EOSINOPHILS % (AUTO) 2 % (1-7); LYMPHOCYTES # (AUTO) 1.97 x10^3/uL (1-3.4); LYMPHOCYTES % (AUTO) 18 % (22-44); MD NO; MEAN CORPUSCULAR HEMOGLOBIN 26.5 pg (27.5-34.5); MEAN CORPUSCULAR HGB CONC 32.7 g/dL (33.2-36.2); MEAN CORPUSCULAR VOLUME 81.1 fL (81-97); MEAN PLATELET VOLUME 7.3 fL (7.4-10.4); MONOCYTES # (AUTO) 0.42 x10^3/uL (0.2-0.8); MONOCYTES % (AUTO) 4 % (2-9); NEUTROPHILS % (AUTO) 75 % (42-75); PLATELET COUNT 433 x10^3/uL (130-400); RED CELL DISTRIBUTION WIDTH 16.1 % (9.4-14.8)
[2017-12-11 05:37] LABS: CHLORIDE 110 mmol/L (98-107)
[2017-12-11 06:03] LABS: ALANINE AMINOTRANSFERASE 60 U/L (12-78); ALBUMIN 2.3 g/dL (3.4-5.0); ALKALINE PHOSPHATASE 120 U/L (45-117); ANION GAP 8 mmol/L (5-15); BILIRUBIN,TOTAL 0.3 mg/dL (0.2-1.0); CALCIUM 8.2 mg/dL (8.5-10.1); CREATININE 0.74 mg/dL (0.7-1.3); TOTAL PROTEIN 7.7 g/dL (6.4-8.2)
[2017-12-11 07:53] VITALS: BP 125/81
[2017-12-11] MEDS: DILTIAZEM 60 MG TABLET PO SCH ×2 (08:52→19:21)
[2017-12-11] MEDS: POLYETHYLENE GLYCOL 17 GM PACKET PO SCH (08:52)
[2017-12-11] MEDS: METOPROLOL TARTRATE 25 MG TABLET PO SCH ×2 (08:52→19:21)
[2017-12-11 13:12] VITALS: BP 120/78
[2017-12-11] MEDS: ENOXAPARIN 40 MG/0.4 ML SQ SCH (15:37)
[2017-12-11] MEDS ORDERED: DILT60TA27 PO (18:59)
[2017-12-11] MEDS ORDERED: ERTA1VIA IV (19:04)
[2017-12-11 19:43] VITALS: BP 128/82
[2017-12-12] MEDS ORDERED: ASPI-650 PO (16:10)
== END 2017-12-11 22:58 | disposition home or self-care (01) | DRG 871 ==
LOC: 4NOR 16:08 → 5SO 12-05 13:51
PROVIDERS: ADMIT Surgery; ATTEND Surgery
PROC: 5A09357 Assistance with Respiratory Ventilation, Less than 24 Consecutive Hours, Continuous Positive Airway Pressure (ICD-10-PCS; principal; 2017-12-07)
DX: A40.9 Streptococcal sepsis, unspecified (principal); K35.2 Acute appendicitis with generalized peritonitis; K75.0 Abscess of liver; K63.0 Abscess of intestine; K76.0 Fatty (change of) liver, not elsewhere classified; I48.0 Paroxysmal atrial fibrillation; E66.01 Morbid (severe) obesity due to excess calories; G47.33 Obstructive sleep apnea (adult) (pediatric); I10 Essential (primary) hypertension; Z79.899 Other long term (current) drug therapy; Z80.8 Family history of malignant neoplasm of other organs or systems; Z83.3 Family history of diabetes mellitus; Z90.49 Acquired absence of other specified parts of digestive tract; Z87.891 Personal history of nicotine dependence
CPT/HCPCS: 36415; 36569; 49405; 71045; 74177; 75989; 76937; 77001; 80048; 80053; 83605; 85025; 85610; 85651; 86140; 87040; 87070; 87075; 87147; 87181; 87205; 93005; 93306; 99156; 99157; C1894; J0295; J1650; J2250; J2543; J3010; J3490; Q9967; C1729; C1751; C1769; J2310; J3480; J7030

== ENCOUNTER → 2017-12-04 | Outpatient (CLI) | payer OTHER ==
[~2017-12-04] MED LIST changes: +ACET-1757 PO; +IBUP-1221 PO; +METO25TA35 PO; +OXYC-302 PO; +[UNRECOGNIZED DRUG - REMARK]; +antibiotic
== END | disposition home or self-care (01) ==
LOC: RAD 12:36
PROVIDERS: ATTEND Surgery
DX: K75.0 Abscess of liver (principal); J90 Pleural effusion, not elsewhere classified; K44.9 Diaphragmatic hernia without obstruction or gangrene; J98.11 Atelectasis
CPT/HCPCS: 74177